=== PATIENT | female | born 1995 ===

== ENCOUNTER 2017-03-10 18:13 | Emergency (ER) | payer MEDICAID ==
[2017-03-10 18:25] VITALS: BP 126/76; PULSE 104; RESP 18; TEMP 99.2; O2SAT 100
[2017-03-10] MEDS ORDERED: Tmp-Smz 800 mg-160 mg DS Tab ONE (19:01)
[2017-03-10] MEDS ORDERED: Tmp-Smz 800 mg-160 mg DS Tab PO STA (19:02)
--- NOTE | 2017-03-10 19:34 | ED PDOC ---
HPI: Skin/Bite Injury Time Seen by Provider: 03/10/17 18:30 Chief Complaint (Nursing): Back Pain Chief Complaint (Provider): abscess History Per: Patient History/Exam Limitations: no limitations Onset/Duration Of Symptoms: Days (x 4) Current Symptoms Are (Timing): Still Present Additional Complaint(s): Ilene Feng is a 22 year old female, with no previous medical history, who presents to the ED with complaints of pain to her tailbone secondary to an abscess. Patient was seen in [facility] where she was given tramadol, percocets and methocarbamol with no relief. Patient denies any additional complaints. PMD: Alexandra Fernandez MD Past Medical History Reviewed: Historical Data, Nursing Documentation, Vital Signs Vital Signs: Last Vital Signs Temp 99.2 F 03/10/17 18:21 Pulse 104 H 03/10/17 18:21 Resp 18 03/10/17 18:21 BP 126/76 03/10/17 18:21 Pulse Ox 100 03/10/17 19:39 - Medical History PMH: No Chronic Diseases - Family History Family History: States: Unknown Family Hx - Home Medications Home Medications: Ambulatory Orders Medication Instructions Recorded Ciprofloxacin HCl [Cipro] 250 mg PO BID #14 tab 06/16/15 Ibuprofen [Motrin] 600 mg PO Q8 #30 tab 06/16/15 Oxycodone HCl/Acetaminophen 1 tab PO Q8 PRN #10 tab 06/16/15 [Percocet 325 mg-5 mg] Tamsulosin HCl [Flomax] 0.4 mg PO DAILY #15 cap 06/16/15 Naproxen [Naprosyn] 500 mg PO BID PRN #15 tablet 03/10/17 Sulfamethoxazole/Trimethoprim 1 tab PO BID #19 tab 03/10/17 [Bactrim DS 800 mg-160 mg] - Allergies Allergies/Adverse Reactions: Allergies Allergy/AdvReac Type Severity Reaction Status Date / Time No Known Allergies Allergy Verified 06/15/15 21:42 Review of Systems ROS Statement: Except As Marked, All Systems Reviewed And Found Negative Constitutional: Negative for: Fever Skin: Positive for: Other (abscess on the tailbone ) Physical Exam - Reviewed Nursing Documentation Reviewed: Yes Vital Signs Reviewed: Yes - Physical Exam Appears: Positive for: Non-toxic, In Acute Distress (moderate painful ) Cardiovascular/Chest: Positive for: Regular Rate, Rhythm Respiratory: Positive for: CNT, Normal Breath Sounds Neurologic/Psych: Positive for: Alert, Oriented Comments: pilonidal cyst noted with purulent drainage. no surrounding induration, no bleeding no vesicles. - ECG O2 Sat by Pulse Oximetry: 100 (RA) Pulse Ox Interpretation: Normal Medical Decision Making Medical Decision Making: Initial Impression: pilonidal cyst Initial Plan: * urine * bactrim * toradol * reevaluation Scribe Attestation: Documented by Esther Conde, acting as a scribe for Esther Marte MD. Provider Scribe Attestation: All medical record entries made by the Scribe were at my direction and personally dictated by me. I have reviewed the chart and agree that the record accurately reflects my personal performance of the history, physical exam, medical decision making, and the department course for this patient. I have also personally directed, reviewed, and agree with the discharge instructions and disposition. Disposition - Clinical Impression Clinical Impression: Pilonidal abscess - Disposition Referrals: [facility] [Outside] Disposition: Routine/Home Disposition Time: 20:00 Condition: STABLE Prescriptions: Naproxen [Naprosyn] 500 mg PO BID PRN #15 tablet PRN Reason: Pain, Moderate (4-7) Sulfamethoxazole/Trimethoprim [Bactrim DS 800 mg-160 mg] 1 tab PO BID #19 tab Instructions: Abscess (ED)
== END 2017-03-10 21:00 | disposition home or self-care (01) ==
LOC: H.ER 18:13
DX: L05.91 Pilonidal cyst without abscess (principal)

== ENCOUNTER 2017-04-29 00:12 | Emergency (ER) | payer MEDICAID ==
[2017-04-29 00:45] VITALS: O2SAT 98
--- NOTE | 2017-04-29 01:47 | ED PDOC ---
HPI: Chest Pain Time Seen by Provider: 04/29/17 00:46 Chief Complaint (Nursing): Chest Pain Chief Complaint (Provider): Chest pain, dizziness, cough, fever History Per: Patient History/Exam Limitations: no limitations Onset/Duration Of Symptoms: Hrs Current Symptoms Are (Timing): Still Present Severity: Moderate Associated Symptoms: Other (dizziness) Additional Complaint(s): The patient is a 22yo female, presents to the ED for evaluation of chest pain, dizziness and near-syncopal episodes earlier today. Pt additionally reports she had a fever yesterday, Tmax of 102 degrees with associated chills, weakness; pt reports she "sweated through the fever" and states she took Ibuprofen with some relief. She additionally states for the past couple days, she has been having a cough, runny nose and left sided upper scapular pain. She also reports today she had episodes of dizziness with a near-syncopal episodes. Pt also reports associated headache. Patient denies any vomiting, diarrhea, abdominal pain, shortness of breath. She denies any sick contacts, dysuria. Pt offers no additional medical complaints. Past Medical History Reviewed: Historical Data, Nursing Documentation, Vital Signs Vital Signs: Last Vital Signs Temp 98.8 F 04/29/17 03:24 Pulse 91 H 04/29/17 02:05 Resp 16 04/29/17 00:41 BP 115/78 04/29/17 00:41 Pulse Ox 98 04/29/17 02:05 - Medical History PMH: No Chronic Diseases - Surgical History Surgical History: No Surg Hx - Family History Family History: States: Unknown Family Hx - Home Medications Home Medications: Ambulatory Orders Medication Instructions Recorded Ciprofloxacin HCl [Cipro] 250 mg PO BID #14 tab 06/16/15 Ibuprofen [Motrin] 600 mg PO Q8 #30 tab 06/16/15 Oxycodone HCl/Acetaminophen 1 tab PO Q8 PRN #10 tab 06/16/15 [Percocet 325 mg-5 mg] Tamsulosin HCl [Flomax] 0.4 mg PO DAILY #15 cap 06/16/15 Naproxen [Naprosyn] 500 mg PO BID PRN #15 tablet 03/10/17 Sulfamethoxazole/Trimethoprim 1 tab PO BID #19 tab 03/10/17 [Bactrim DS 800 mg-160 mg] - Allergies Allergies/Adverse Reactions: Allergies Allergy/AdvReac Type Severity Reaction Status Date / Time No Known Allergies Allergy Verified 04/29/17 00:40 JEAN MARIE Risk Score for UA/NSTEMI - JEAN MARIE Risk Score Age > 64: NO 3 or more CAD Risk Factors: NO Known CAD (Stenosis greater than 50%): NO Aspirin use in past 7 days: NO Severe Angina: NO EKG ST changes greater than 0.5mm: NO Positive Cardiac Marker: NO JEAN MARIE Score: 0 Risk %: 5% Review of Systems ROS Statement: Except As Marked, All Systems Reviewed And Found Negative Constitutional: Positive for: Fever, Chills, Weakness Cardiovascular: Positive for: Chest Pain Respiratory: Positive for: Cough. Negative for: Shortness of Breath Gastrointestinal: Negative for: Vomiting, Abdominal Pain, Diarrhea Neurological: Positive for: Headache, Dizziness Physical Exam - Reviewed Nursing Documentation Reviewed: Yes Vital Signs Reviewed: Yes - Physical Exam Appears: Positive for: Well, Non-toxic, Uncomfortable Head Exam: Positive for: ATRAUMATIC, NORMAL INSPECTION, NORMOCEPHALIC Skin: Positive for: Normal Color, Warm Eye Exam: Positive for: Normal appearance, EOMI, PERRL Neck: Positive for: Normal, Supple Cardiovascular/Chest: Positive for: Regular Rate, Rhythm Respiratory: Positive for: Normal Breath Sounds. Negative for: Respiratory Distress Gastrointestinal/Abdominal: Positive for: Normal Exam, Soft. Negative for: Tenderness Extremity: Positive for: Normal ROM, Tenderness (left scapular tenderness). Negative for: Deformity, Swelling Neurologic/Psych: Positive for: Alert, Oriented - Laboratory Results Result Diagrams: 04/29/17 01:41 04/29/17 01:41 - ECG ECG: Positive for: Interpreted By Me, Viewed By Me ECG Rhythm: Positive for: Normal QRS, Normal ST Segment, Sinus Rhythm. Negative for: ST/T Changes Rate: 91 O2 Sat by Pulse Oximetry: 98 (RA) - Radiology X-Ray: Interpreted by Me, Viewed By Me X-Ray Interpretation: No Acute Disease - Progress Re-evaluation Time: 04:30 Condition: Re-examined, Improved Medical Decision Making Medical Decision Making: Time: 0110 Impression: Chest pain with fever and cough and associated near-syncopal episode Differential: PNA, UTI, dehydration from an infection, near-syncopal episode due to dehydration r/o cardiac arrhythmia, Plan: -- Bloodwork -- IV fluids -- CXR -- Reassess Scribe Attestation: Documented by Georgiana Mckinley acting as a scribe for Emmett Huston MD. Provider Attestation: All medical record entries made by the Scribe were at my direction and personally dictated by me. I have reviewed the chart and agree that the record accurately reflects my personal performance of the history, physical exam, medical decision making, and the department course for this patient. I have also personally directed, reviewed, and agree with the discharge instructions and disposition. Disposition - Clinical Impression Clinical Impression: Viral syndrome, Chest pain - Patient ED Disposition Is Patient to be Admitted: No Doctor Will See Patient In The: Office Counseled Patient/Family Regarding: Studies Performed, Diagnosis, Need For Followup - Disposition Referrals: Alexandra Fernandez MD [Primary Care Provider] - Disposition: Routine/Home Disposition Time: 04:36 Condition: GOOD Additional Instructions: Follow up with your PCP in 2-3 days. Instructions: Chest Pain (ED), Viral Syndrome (ED)
[2017-04-29 01:50] LABS: BASO % 0.8 % (0.0-2.0); EOS % 0.4 % (0.0-4.0); LYMPH # 0.6 K/uL (1.0-4.3); LYMPH % 14.1 % (20.0-40.0); MEAN CELL VOLUME 87.1 fl (81.0-99.0); MEAN CORPUSCULAR HEMOGLOBIN 28.4 pg (27.0-31.0); MEAN CORPUSCULAR HGB CONC 32.6 g/dL (33.0-37.0); MEAN PLATELET VOLUME 8.3 fl (7.2-11.7); MONO # 0.6 K/uL (0.0-0.8); MONO % 14.4 % (0.0-10.0); NEUT # 2.9 K/uL (1.8-7.0); NEUT % 70.3 % (50.0-75.0); RED CELL DISTRIBUTION WIDTH 14.2 % (11.5-14.5); WHITE BLOOD COUNT 4.2 K/uL (4.8-10.8)
[2017-04-29] MEDS ORDERED: Sodium Chloride 0.9% 1,000 ML IV STA (01:54)
[2017-04-29 01:58] LABS: BLOOD UREA NITROGEN 11 mg/dl (7-17); CALCIUM 9.5 mg/dL (8.4-10.2); CARBON DIOXIDE 26 mmol/L (22-30); CHLORIDE 102 mmol/L (98-107); GFR AFRICAN-AMERICAN > 60; GLUCOSE,RANDOM 92 mg/dL (65-105); POTASSIUM 4.2 MMOL/L (3.6-5.0); SODIUM 140 mmol/l (132-148)
[2017-04-29 04:42] VITALS: BP 103/62; PULSE 86; RESP 18; TEMP 98.5
--- NOTE | 2017-04-29 10:12 | RAD ---
PROCEDURE: CHEST RADIOGRAPH, 1 VIEW HISTORY: Chest pain COMPARISON: None available. FINDINGS: LUNGS: The lungs are well inflated and clear. PLEURA: No pneumothorax or pleural fluid seen. CARDIOVASCULAR: Normal. OSSEOUS STRUCTURES: No significant abnormalities. VISUALIZED UPPER ABDOMEN: Normal. OTHER FINDINGS: None. IMPRESSION: No active pulmonary disease.
--- NOTE | 2017-04-29 18:08 | CARD ---
APPROVED REPORT EKG Measurement Heart [id number] <Conclusion> Normal sinus rhythm Normal ECG
== END 2017-04-29 04:57 | disposition home or self-care (01) ==
LOC: H.ER 00:12
DX: B34.9 Viral infection, unspecified (principal); R07.9 Chest pain, unspecified

== ENCOUNTER 2017-08-07 11:40 | Emergency (ER) | payer MEDICAID ==
[2017-08-07 11:48] VITALS: O2SAT 98
[2017-08-07 12:25] LABS: BASO # 0.1 K/uL (0.0-0.2); BASO % 0.8 % (0.0-2.0); EOS # 0.1 K/uL (0.0-0.7); EOS % 1.3 % (0.0-4.0); HEMATOCRIT 43.8 % (34.0-47.0); LYMPH # 2.5 K/uL (1.0-4.3); LYMPH % 31.3 % (20.0-40.0); MEAN CELL VOLUME 86.4 fl (81.0-99.0); MEAN CORPUSCULAR HEMOGLOBIN 28.1 pg (27.0-31.0); MEAN CORPUSCULAR HGB CONC 32.5 g/dL (33.0-37.0); MEAN PLATELET VOLUME 8.1 fl (7.2-11.7); MONO # 0.4 K/uL (0.0-0.8); MONO % 5.5 % (0.0-10.0); NEUT # 4.9 K/uL (1.8-7.0); NEUT % 61.1 % (50.0-75.0); RED CELL DISTRIBUTION WIDTH 13.4 % (11.5-14.5)
[2017-08-07 12:33] LABS: ALB/GLOB RATIO 1.4 (1.0-2.1); ALKALINE PHOSPHATASE 80 U/L (38-126); ALT/SGPT 41 U/L (9-52); AST/SGOT 27 U/L (14-36); BILIRUBIN,TOTAL 0.6 mg/dl (0.2-1.3); BLOOD UREA NITROGEN 7 mg/dl (7-17); CALCIUM 9.1 mg/dL (8.4-10.2); CARBON DIOXIDE 21 mmol/L (22-30); CHLORIDE 109 mmol/L (98-107); GFR AFRICAN-AMERICAN > 60; GLUCOSE,RANDOM 98 mg/dL (65-105); POTASSIUM 4.1 MMOL/L (3.6-5.0); SODIUM 145 mmol/l (132-148); TOTAL PROTEIN 7.8 G/DL (6.3-8.2)
--- NOTE | 2017-08-07 12:56 | US ---
HISTORY: mid and upper abd pain radiating to back COMPARISON: None. TECHNIQUE: Sonographic evaluation of the abdomen. FINDINGS: LIVER: Measures 15.6 cm. Normal echogenicity of the liver parenchyma. No mass. No intrahepatic bile duct dilatation. GALLBLADDER: There are few small gallstones appreciated. No gallbladder wall thickening or pericholecystic fluid is seen. No sonographic Hackett's sign was elicited by the technologist. COMMON BILE DUCT: Measures 3-4 mm. No stones. No dilatation. PANCREAS: Visualized portions of the pancreas are normal in outline. Tail of the pancreas however was obscured by bowel gas. RIGHT KIDNEY: Measures 9.7cm. Normal echogenicity. No calculus, mass, or hydronephrosis. LEFT KIDNEY: Measures 10.4cm. Normal echogenicity. No calculus, mass, or hydronephrosis. SPLEEN: Normal in size and contour. No mass. AORTA: No aneurysmal dilatation. IVC: Unremarkable. OTHER FINDINGS: None. IMPRESSION: Cholelithiasis. No ultrasound evidence of acute cholecystitis.
--- NOTE | 2017-08-07 13:19 | ED PDOC ---
HPI: Abdomen Time Seen by Provider: 08/07/17 11:51 Chief Complaint (Nursing): Shortness Of Breath Chief Complaint (Provider): Abdominal Pain History Per: Patient History/Exam Limitations: no limitations Current Symptoms Are (Timing): Still Present Quality Of Discomfort: Sharp Additional Complaint(s): 22 y/o female who complains of abdominal pain, nausea, and sense of bloating. Patient describes the pain as sharp, radiating to the back and often postprandial, after fatty meals. She also complains of intermittent constipation , but states her bowel movements have been normal recently. Patient is currently on hormone therapy for fertility. This morning she had an episode of shortness of breath at rest. PMD: Dr. Alexandra Mcfadden Past Medical History Reviewed: Historical Data, Nursing Documentation, Vital Signs Vital Signs: Last Vital Signs Temp 98.5 F 08/07/17 11:41 Pulse 78 08/07/17 14:00 Resp 19 08/07/17 14:00 BP 130/72 08/07/17 14:00 Pulse Ox 98 08/07/17 15:14 - Family History Family History: States: Unknown Family Hx - Home Medications Home Medications: Ambulatory Orders Medication Instructions Recorded Ciprofloxacin HCl [Cipro] 250 mg PO BID #14 tab 06/16/15 Ibuprofen [Motrin] 600 mg PO Q8 #30 tab 06/16/15 Oxycodone HCl/Acetaminophen 1 tab PO Q8 PRN #10 tab 06/16/15 [Percocet 325 mg-5 mg] Tamsulosin HCl [Flomax] 0.4 mg PO DAILY #15 cap 06/16/15 Naproxen [Naprosyn] 500 mg PO BID PRN #15 tablet 03/10/17 Sulfamethoxazole/Trimethoprim 1 tab PO BID #19 tab 03/10/17 [Bactrim DS 800 mg-160 mg] - Allergies Allergies/Adverse Reactions: Allergies Allergy/AdvReac Type Severity Reaction Status Date / Time No Known Allergies Allergy Verified 04/29/17 00:40 Review of Systems ROS Statement: Except As Marked, All Systems Reviewed And Found Negative Respiratory: Positive for: Shortness of Breath Gastrointestinal: Positive for: Nausea, Abdominal Pain, Constipation, Other ( sense of bloating) - Laboratory Results Result Diagrams: 08/07/17 12:14 08/07/17 12:14 - ECG O2 Sat by Pulse Oximetry: 98 (RA) Pulse Ox Interpretation: Normal Medical Decision Making Medical Decision Making: Time: 12:54 US Abd FINDINGS: LIVER: Measures 15.6 cm. Normal echogenicity of the liver parenchyma. No mass. No intrahepatic bile duct dilatation. GALLBLADDER: There are few small gallstones appreciated. No gallbladder wall thickening or pericholecystic fluid is seen. No sonographic Hackett's sign was elicited by the technologist. COMMON BILE DUCT: Measures 3-4 mm. No stones. No dilatation. PANCREAS: Visualized portions of the pancreas are normal in outline. Tail of the pancreas however was obscured by bowel gas. RIGHT KIDNEY: Measures 9.7cm. Normal echogenicity. No calculus, mass, or hydronephrosis. LEFT KIDNEY: Measures 10.4cm. Normal echogenicity. No calculus, mass, or hydronephrosis. SPLEEN: Normal in size and contour. No mass. AORTA: No aneurysmal dilatation. IVC: Unremarkable. OTHER FINDINGS: None. IMPRESSION: Cholelithiasis. No ultrasound evidence of acute cholecystitis. Time: 13:34 workup for abd pain with dyspnea in setting of hormonal therapy for ovulation induction initiated. labs obtained and reviewed Normal Hgb, normal chemistries, Mildly elevated DDimer. Trop and BNP neg. BHCG +17.2 (?early preg) Abd US reveals +cholelithiasis Given patient is on hormonal therapy, and possible early , need to r/o thromboembolism as patient reported dyspnea earlier. Currently her vitals are stable without hypoxia, tachycardia or leg pain. To obtain duplex LE to r/o DVT. Time: 15:06 US Extremity Bilat FINDINGS: COMMON FEMORAL VEIN: Right CFV: Unremarkable. Left CFV: Unremarkable. SUPERFICIAL FEMORAL VEIN: Right SFV: Unremarkable. Left SFV: Unremarkable. POPLITEAL VEIN: Right Popliteal: Unremarkable. Left Popliteal: Unremarkable. POSTERIOR TIBIAL VEIN: Right PTV: Unremarkable. Left PTV: Unremarkable. OTHER FINDINGS: None. IMPRESSION: No evidence of deep venous thrombosis. ~320pm- discussed all findings w Dr Aleksandra Robin of patients OBGYN group ([facility]/ [facility])- states very unlikely to be PE given lack tachycardia and resolution of dyspnea, neg trop, normal BNP (indicating lack of R heart strain), neg duplex LE. She stated DDimer is expected to be slightly elevated in early . She recommends against CT angio given likely early . She can be discharged to followup w office. I again explained all findings to patient and significant other including options of CTA chest for definitive rule-out of PE- given theoretical risks of radiation exposure to possible early . They stated they did not want to proceed with CT or Obs admission for VQ study. She feels much better, no dyspnea, and believes her SOB was caused by the pain of likely cholelithiasis this morning. Overall, patient took part in all decision making after risks/ benefits/alternatives were fully explained. Given opportunity to ask questions, and she understands important need for followup, early (possible) precautions, and indications for return to ED. Scribe Attestation: Documented by Ronnie Juan, acting as a scribe for Gregory Cruz III, MD Provider Scribe Attestation: All medical record entries made by the Scribe were at my direction and personally dictated by me. I have reviewed the chart and agree that the record accurately reflects my personal performance of the history, physical exam, medical decision making, and the department Disposition - Clinical Impression Clinical Impression: Cholelithiasis, Dyspnea - Patient ED Disposition Is Patient to be Admitted: No Counseled Patient/Family Regarding: Studies Performed, Diagnosis, Need For Followup - Disposition Referrals: Leon Medeiros MD [Staff Provider] - Disposition: Routine/Home Disposition Time: 15:50 Condition: STABLE Additional Instructions: See your OBGYN this week for re-evaluation and further testing. Also may see pulmonary doctor for further testing if shortness of breath returns. RETURN TO ER IMMEDIATELY FOR ANY WORSE OR NEW SYMPTOMS. CT CHEST WAS DEFERRED BY YOU TODAY TO RULE-OUT LIFE THREATENING PULMONARY EMBOLISM. Bloodwork showed POSSIBLE early , followup for definitive testing. Recommend low fat diet, return to ER immediately for any chest pain, difficulty breathing, fever, coughing up blood, leg pain/swelling, abdominal pain or nausea. BHCG level 17.2 today. Instructions: Gallstones (ED), Dyspnea (ED) Forms: [employer] (Estonian)
[2017-08-07 14:59] VITALS: PULSE 78; RESP 19
--- NOTE | 2017-08-07 15:08 | US ---
PROCEDURE: Bilateral lower extremity venous duplex Doppler. HISTORY: r/o DVT COMPARISON: None available. TECHNIQUE: Bilateral common femoral, superficial femoral, popliteal and posterior tibial veins were evaluated. Flow was assessed with color Doppler, compressibility, assessment of phasic flow and augmentation response. FINDINGS: COMMON FEMORAL VEIN: Right CFV: Unremarkable. Left CFV: Unremarkable. SUPERFICIAL FEMORAL VEIN: Right SFV: Unremarkable. Left SFV: Unremarkable. POPLITEAL VEIN: Right Popliteal: Unremarkable. Left Popliteal: Unremarkable. POSTERIOR TIBIAL VEIN: Right PTV: Unremarkable. Left PTV: Unremarkable. OTHER FINDINGS: None. IMPRESSION: No evidence of deep venous thrombosis.
[2017-08-07 16:01] VITALS: BP 128/70; TEMP 97.6
== END 2017-08-07 16:01 | disposition home or self-care (01) ==
LOC: H.ER 11:40
DX: R06.00 Dyspnea, unspecified (principal); K80.20 Calculus of gallbladder without cholecystitis without obstruction

== ENCOUNTER 2017-09-20 22:21 | Emergency (ER) | payer MEDICAID ==
[2017-09-20 22:36] VITALS: BP 153/72; PULSE 77; RESP 16; TEMP 98.8; O2SAT 100
--- NOTE | 2017-09-20 23:09 | ED PDOC ---
HPI: Female Pain Time Seen by Provider: 09/20/17 22:43 Chief Complaint (Nursing): Female Genitourinary Chief Complaint (Provider): ; vaginal bleeding History Per: Patient History/Exam Limitations: no limitations Onset/Duration Of Symptoms: Days (2) Current Symptoms Are (Timing): Still Present Quality Of Discomfort: Cramping Additional History Per: Patient Additional Complaint(s): 22 y/o female, approximately 9 weeks gestation, presents with vaginal bleeding x 2 days. Patient states symptoms started as light spotting, which became heavier today, prompting ED visit. Patient also notes starting Metro gel one day prior to onset of bleeding; states she spoke with her [employer] Specialist yesterday and was told that was normal. Denies fever, nausea/vomiting, chest pain, abdominal pain, dysuria, hematuria, vaginal discharge Past Medical History Reviewed: Historical Data, Nursing Documentation, Vital Signs Vital Signs: Last Vital Signs Temp 98.8 F 09/20/17 22:31 Pulse 77 09/20/17 22:31 Resp 16 09/20/17 22:31 BP 153/72 H 09/20/17 22:31 Pulse Ox 100 09/20/17 22:31 - Medical History PMH: No Chronic Diseases - Surgical History Surgical History: No Surg Hx - Family History Family History: States: Unknown Family Hx - Living Arrangements Living Arrangements: With Family - Home Medications Home Medications: Ambulatory Orders Medication Instructions Recorded Ciprofloxacin HCl [Cipro] 250 mg PO BID #14 tab 06/16/15 Ibuprofen [Motrin] 600 mg PO Q8 #30 tab 06/16/15 Oxycodone HCl/Acetaminophen 1 tab PO Q8 PRN #10 tab 06/16/15 [Percocet 325 mg-5 mg] Tamsulosin HCl [Flomax] 0.4 mg PO DAILY #15 cap 06/16/15 Naproxen [Naprosyn] 500 mg PO BID PRN #15 tablet 03/10/17 Sulfamethoxazole/Trimethoprim 1 tab PO BID #19 tab 03/10/17 [Bactrim DS 800 mg-160 mg] - Allergies Allergies/Adverse Reactions: Allergies Allergy/AdvReac Type Severity Reaction Status Date / Time No Known Allergies Allergy Verified 04/29/17 00:40 Review of Systems ROS Statement: Except As Marked, All Systems Reviewed And Found Negative Genitourinary Female: Positive for: Vaginal Bleeding Physical Exam - Reviewed Nursing Documentation Reviewed: Yes Vital Signs Reviewed: Yes - Physical Exam Appears: Positive for: Well, Non-toxic, No Acute Distress Head Exam: Positive for: ATRAUMATIC, NORMAL INSPECTION, NORMOCEPHALIC Skin: Positive for: Normal Color Eye Exam: Positive for: Normal appearance ENT: Positive for: Normal ENT Inspection Cardiovascular/Chest: Positive for: Regular Rate, Rhythm Respiratory: Positive for: Normal Breath Sounds Gastrointestinal/Abdominal: Positive for: Normal Exam, Bowel Sounds, Soft. Negative for: Tenderness Pelvic Exam: Positive for: External Exam Normal, No Cerv. Motion Tender, Blood, Other (exam chaperoned: Rachel Alba rad tech). Negative for: Active Bleeding (cervix closed) Back: Positive for: Normal Inspection Extremity: Positive for: Normal ROM Neurologic/Psych: Positive for: Alert, Oriented - Laboratory Results Result Diagrams: 09/20/17 23:30 09/20/17 23:30 - ECG O2 Sat by Pulse Oximetry: 100 - Progress ED Course And Treament: labs, urine, TV u/s Addendum created by Asuncion Knight MD on 09/21/2017 1:06 AM Eastern Time ([place] & [place]) THIS REPORT CONTAINS FINDINGS THAT MAY BE CRITICAL TO PATIENT CARE. The findings were verbally communicated via telephone conference with Lizeth العلي PA-C at 1 :06 AM EST on 09/21/2017. The findings were acknowledged and understood. Initial Report created on 09/21/2017 1:00 AM Eastern Time ([place] & [place]) EXAM: US , Transvaginal CLINICAL HISTORY: 22 years old, female; Signs and symptoms; Lmp or gestational age (in weeks): See us ws; ; Additional info: , bleeding TECHNIQUE: Real-time transvaginal obstetrical ultrasound of the maternal pelvis and a first trimester with image documentation. Transvaginal imaging was used for better evaluation of the fetus and adnexa. The study is being interpreted off site, with no opportunity for direct real time observation. COMPARISON: No relevant prior studies available. FINDINGS: Gestation: There is a gestational sac, with gestational sac diameter of 2.16 cm , corresponding to a gestational age of 6 weeks and 5 days. There is a pole with crown rump length of 1.28 cm, corresponding to gestational age of 7 weeks and 3 days. cardiac activity was not detected by the computed tomography technologist. The yolk sac is demonstrated. Placenta/amniotic fluid: Cannot be adequately evaluated due to the early gestational age. Uterus/cervix: There is heterogeneous material in the lower uterine segment and cervix, possibly blood products. No myometrial mass. Ovaries: The right ovary was not detected. The left ovary is unremarkable. Free fluid: No free fluid. IMPRESSION: Intrauterine corresponding to 7 weeks and 3 days, with absence of cardiac activity as detected by the computed tomography technologist. Consider demise and recommend confirmation by real-time evaluation by a radiologist. Patient educated on findings, advised [facility] Specialist follow up in 2 days for re- evaluation. Patient was advised to return to ED for worsening/concerning symptoms. Disposition - Clinical Impression Clinical Impression: Threatened miscarriage - Patient ED Disposition Is Patient to be Admitted: No Counseled Patient/Family Regarding: Studies Performed, Diagnosis, Need For Followup - Disposition Disposition: Routine/Home Disposition Time: 01:30 Condition: STABLE Additional Instructions: Follow up in 48 hours for re-evaluation Return to ED for worsening/concerning symptoms. Instructions: Threatened Miscarriage (ED)
[2017-09-20 23:34] LABS: BASO # 0.1 K/uL (0.0-0.2); BASO % 0.6 % (0.0-2.0); EOS # 0.1 K/uL (0.0-0.7); EOS % 1.1 % (0.0-4.0); LYMPH # 3.6 K/uL (1.0-4.3); LYMPH % 30.8 % (20.0-40.0); MEAN CELL VOLUME 86.6 fl (81.0-99.0); MEAN CORPUSCULAR HEMOGLOBIN 28.5 pg (27.0-31.0); MEAN CORPUSCULAR HGB CONC 32.9 g/dL (33.0-37.0); MONO # 0.9 K/uL (0.0-0.8); MONO % 7.8 % (0.0-10.0); NEUT % 59.7 % (50.0-75.0); WHITE BLOOD COUNT 11.7 K/uL (4.8-10.8)
[2017-09-20 23:48] LABS: ALB/GLOB RATIO 1.5 (1.0-2.1); ALKALINE PHOSPHATASE 68 U/L (38-126); ALT/SGPT 39 U/L (9-52); AST/SGOT 23 U/L (14-36); BILIRUBIN,TOTAL 0.4 mg/dl (0.2-1.3); BLOOD UREA NITROGEN 12 mg/dl (7-17); CALCIUM 9.6 mg/dL (8.4-10.2); CARBON DIOXIDE 26 mmol/L (22-30); CHLORIDE 104 mmol/L (98-107); GFR AFRICAN-AMERICAN > 60; GLUCOSE,RANDOM 104 mg/dL (65-105); POTASSIUM 4.1 MMOL/L (3.6-5.0); SODIUM 141 mmol/l (132-148); TOTAL PROTEIN 7.8 G/DL (6.3-8.2)
--- NOTE | 2017-09-21 11:17 | US ---
PROCEDURE: First trimester ultrasound HISTORY: , bleeding COMPARISON: None available. TECHNIQUE: Standard protocol for this study/examination. FINDINGS: LMP: 07/08/2017 Prior examinations from the current : None TECHNIQUE: Real-time 2D imaging, duplex and color Doppler. FINDINGS: Cardiac activity: Absent Measurements: [place] rump length: 1.28 cm Gestational age based on CRL 7 weeks 3 days Gestational age based on gestational sac measurement 6 weeks 5 days Gestational age derived from LMP: Ten weeks 5 days ЕКАТЕРИНА based on LMP: 04/14/2018 ЕКАТЕРИНА based on biometry: 05/09/2018 Gestational concordance documented Yolk sac identified Uterus: Unremarkable. No Cervical abnormalities: Negative examination for cervical dilatation or effacement. Fluid, debris within the cervical canal. Closed cervix measuring 4.85 cm Incidental finding: Nabothian cysts Subchorionic hemorrhage: None UTERUS: 5.1 x 6 x 10.0 cm. ADNEXA: Right: Not visualized. Left: 2 x 1.7 x 2.4 cm. Normal Doppler arterial waveform documented Fluid in the cul-de-sac: None IMPRESSION: Gestational discordance of approximately 3 weeks and absence of cardiac activity suggest intrauterine demise. Concordant results (preliminary interpretation) provided by [facility]. Procedure Completed: 00:27 Preliminary ([facility]) Report: Dictated and Authenticated: 01:00. Final Interpretation: 11:15. September 21, 2017.
== END 2017-09-21 02:30 | disposition home or self-care (01) ==
LOC: H.ER 22:21
DX: O20.0 Threatened abortion (principal); Z3A.09 9 weeks gestation of pregnancy